=== PATIENT | male | born 1985 | race Caucasian/White ===

== ENCOUNTER 2021-05-15 16:35 | Emergency (ER) | payer OTHER, SELFPAY ==
[2021-05-15 16:41] VITALS: BP 140/66; PULSE 81; RESP 12; TEMP 37.2; O2SAT 99
--- NOTE | 2021-05-15 16:48 | ED.URI ---
HPI - URI/Sore Throat General Chief Complaint: Upper Respiratory Infection Stated Complaint: COUGH/SOB Time Seen by Provider: 05/15/21 16:49 Source: patient, RN notes reviewed and old records reviewed Mode of arrival: ambulatory Limitations: no limitations History of Present Illness HPI Narrative: 35 year old male who presents to [facility] care with complaints of dry throat and occasional productive cough with no acute shortness of breath at rest or with exertion, Patient speaks in full sentences with no dyspnea, respirations are even and nonlabored with no tachypnea noted. Patient denies any fevers, chills, or sweats, denies any sore throat, or any ear pain. Patient states that he has not had COVID vaccination, that he works from home and has not been exposed to anyone with symptoms of COVID..Patient has not taken any OTC medications for his symptoms. Related Data Home Medications Medication Instructions Recorded Confirmed No Home Medications 05/15/21 05/15/21 Allergies Allergy/AdvReac Type Severity Reaction Status Date / Time No Known Allergies Allergy Verified 05/15/21 16:42 Review of Systems Review of Systems: CONSTITUTIONAL: Denies fever, chills, or sweats. EYES: Denies visual changes, redness, or discharge. ENT: Clear rhinorrhea, congestion,no sore throat, or otalgia. CARDIOVASCULAR: Denies chest pain, palpitations, or edema. RESPIRATORY: Positive cough no acute dyspnea. GASTROINTESTINAL: Denies abdominal pain, nausea, vomiting, or diarrhea. GENITOURINARY: Denies dysuria or hematuria. SKIN: Denies rash or itching. MUSCULOSKELETAL: Denies back pain, joint pain, or myalgia. NEUROLOGIC: Denies headache, numbness, or weakness. PSYCHIATRIC: Positive anxiety or depression. All systems reviewed & are unremarkable except as noted in HPI and below PMFSH Past Medical History Medical History (Updated 05/15/21 @ 17:27 by Samreen Pollard NP) Anxiety and depression Surgical History Surgical History (Updated 05/15/21 @ 16:53 by Samreen Pollard NP) H/O inguinal hernia repair Family History Family History (Updated 05/15/21 @ 17:35 by Samreen Pollard NP) Other No significant family history Social History Social History (Updated 05/15/21 @ 17:36 by Samreen Pollard NP) Smoking status: Never smoker Alcohol intake: never Substance use: never Living arrangements: with family Gender identity (if verbalized by the patient): Male Comments At time of signature, agree with nursing past medical, surgical, social and family history. There is no relevant family history pertinent to the presenting complaint Exam Narrative: GENERAL: Well-appearing, well-nourished, and in no acute distress. HEAD: Normocephalic, atraumatic. EYES: PERRLA and EOMI. ENT: Nares mild redness with clear rhinorrhea No epistaxis. Mucous membranes moist.TMs normal with good light reflex, throat pink with no lesions or exudate no tonsil enlargement NECK: Supple. no lymphadenopathy CHEST: Clear to auscultation. No respiratory distress. SaO2 99% on room air no cough noted and speaks in full sentences with no tachypnea noted HEART: Regular rate and rhythm. No murmur heard. Normal peripheral pulses. ABDOMEN: Soft, nontender, nondistended, normal active bowel sounds. EXTREMITIES: Normal range of motion. No edema. SKIN: Warm, dry, no rash. NEURO: No focal deficits. Alert and oriented x3. Course Vital Signs Vital signs: Vital Signs Temperature 37.2 C 05/15/21 16:41 Pulse Rate 81 05/15/21 16:41 Respiratory Rate 12 05/15/21 16:41 Blood Pressure 140/66 05/15/21 16:41 Pulse Oximetry 99 05/15/21 16:41 Temperature 37.2 C 05/15/21 16:41 Pulse Rate 81 05/15/21 16:41 Respiratory Rate 12 05/15/21 16:41 Blood Pressure 140/66 05/15/21 16:41 Pulse Oximetry 99 05/15/21 16:41 MDM - URI/Sore Throat Differential Diagnosis Differential diagnosis: Likely upper respiratory infection, sinusitis, viral inf
== END 2021-05-15 17:32 | disposition home or self-care (01) ==
PROVIDERS: Emergency Provider Registered Nurse
DX: J06.9 Acute upper respiratory infection, unspecified (principal)
CPT/HCPCS: 99202; G0463